=== PATIENT | female | born 1995 | race Hispanic/Latino ===

== ENCOUNTER 2024-02-02 13:53 | Emergency (ER) | payer OTHER, SELFPAY ==
[2024-02-02 14:03] VITALS: BP 118/84; PULSE 72; RESP 15; TEMP 36.4; O2SAT 100
[2024-02-02 14:34] LABS: Basophils Percent Auto 0.4 % (0.2-1.2); Eosinophils Absolute Auto 0.1 K/mm3 (0-0.3); Eosinophils Percent Auto 1.6 % (0-4.4); Hematocrit 29.2 % (37.0-47.0); Hemoglobin 8.6 g/dL (12.0-15.0); Immature Granulocyte Absolute 0.01 K/mm3 (0.00-0.031); Immature Granulocyte Percent A 0.2 % (0-0.5); Lymphocytes Absolute Auto 1.22 K/mm3 (0.9-3.2); Mean Corpuscular HGB Conc 29.5 g/dl (32-36); Mean Corpuscular Hemoglobin 18.1 pg (26-34); Mean Corpuscular Volume 61.3 fl (80-100); Mean Platelet Volume 9.7 fl (7.4-10.4); Monocytes Absolute Auto 0.5 K/mm3 (0.1-0.6); Monocytes Percent Auto 9.4 % (2.6-8.5); Neutrophils Absolute Auto 3.7 K/mm3 (1.3-6.7); Neutrophils Percent Auto 66.4 % (45.5-73.1); Platelet Count Result 362 k/mm3 (150-375); Red Blood Count 4.76 M/mm3 (4.2-5.4); Red Cell Distribution Width 19.9 % (11.5-14.5); White Blood Count 5.6 K/mm3 (4.5-10.0)
[2024-02-02 14:43] LABS: Alanine Aminotransferase 16 U/L (6-35); Albumin Level 4.3 g/dL (3.5-5.1); Alkaline Phosphatase 91 U/L (38-126); Anion Gap 8 mmol/L (4-12); Aspartate Amino Transferase 27 U/L (14-36); Bilirubin,Total 0.2 mg/dL (0.2-1.3); Blood Urea Nitrogen 12 mg/dL (7-17); Carbon Dioxide 26 mmol/L (22-30); Chloride 102 mmol/L (98-107); Estimated CRCL calculation 85 ml/min; Estimated Glomerular Filt Rate > 60; Glucose 99 mg/dL (65-110); Hypochromasia 1+; Lipase 75 U/L (23-300); Platelet Estimate Adequate (Adequate); Potassium 4.1 mmol/L (3.4-5.0); Sodium 136 mmol/L (137-145)
[2024-02-02 14:44] LABS: Microcytosis 2+ (NORMAL); Ovalocytes 1+; Schistocytes None Seen
--- NOTE | 2024-02-02 14:44 | ED.ABDPAIN ---
HPI - Abdominal Pain General Chief Complaint: Abdominal Pain Stated Complaint: LUQ abd pain Time Seen by Provider: 02/02/24 14:08 History of Present Illness HPI narrative: For the last 1-2 days patient has had cough, runny nose, diarrhea, and when she coughs she has pain to her left upper quadrant. No nausea or vomiting. No medical history. Related Data Allergies Allergy/AdvReac Type Severity Reaction Status Date / Time No Known Allergies Allergy Verified 02/02/24 14:17 Review of Systems Review of Systems: All systems reviewed & are unremarkable except as noted in HPI and below Exam Narrative: EXAMINATION OF ORGAN SYSTEMS/BODY AREAS: Constitutional: Vital signs per nursing GENERAL:[No acute distress, non-toxic appearing.] HEAD: Normal with no signs of head trauma. EYES: EOMI, conjunctiva normal ENT: Hearing grossly intact LUNGS: Nonlabored breathing. HEART: [Regular rate and rhythm] ABD: [Soft], slight tenderness to palpation left upper part EXT: Normal range of motion SKIN: [No rashes or lesions.] NEURO: [Alert and oriented x 3. No gross focal sensory or strength deficits.] PSYCH: Normal affect Course Vital Signs Vital signs: Vital Signs Temperature 97.6 F 02/02/24 14:03 Pulse Rate 72 02/02/24 14:03 Respiratory Rate 15 02/02/24 14:03 Blood Pressure 118/84 02/02/24 14:03 Pulse Oximetry 100 02/02/24 14:03 Oxygen Delivery Room Air 02/02/24 14:03 Temperature 97.6 F 02/02/24 14:03 Pulse Rate 72 02/02/24 14:03 Respiratory Rate 15 02/02/24 14:03 Blood Pressure 118/84 02/02/24 14:03 Pulse Oximetry 100 02/02/24 14:03 Oxygen Delivery Room Air 02/02/24 14:03 MDM - Abdominal Pain MDM Narrative Medical decision making narrative: 28-year-old female presents here with 1 day of viral syndrome, including cough, some left upper quadrant pain with coughing, runny nose and chills, and diarrhea. She is very well-appearing here, abdomen soft with some very minimal tenderness to the left upper quadrant. Labs within acceptable limits other than low hemoglobin. She is treated symptomatically here, and I will give her prescriptions for viral syndrome and start her on iron pills. I have asked her to follow up with primary care doctor for recheck. Patient and mom at bedside agreeable to plan. Very well-appearing at time of discharge. visitor service assistant used at all times. Lab Data 02/02/24 14:26 02/02/24 14:26 Labs: Lab Results 02/02/24 02/02/24 02/02/24 Range/Units 14:26 14:49 15:03 WBC 5.6 (4.5-10.0) K/mm3 RBC 4.76 (4.2-5.4) M/mm3 Hgb 8.6 L (12.0-15.0) g/dL Hct 29.2 L (37.0-47.0) % MCV 61.3 L (80-100) fl MCH 18.1 L (26-34) pg MCHC 29.5 L (32-36) g/dl RDW 19.9 H (11.5-14.5) % Plt Count 362 (150-375) k/mm3 MPV 9.7 (7.4-10.4) fl Immature Gran % (Auto) 0.2 (0-0.5) % Neut % (Auto) 66.4 (45.5-73.1) % Lymph % (Auto) 22.0 (18.3-44.2) % [place] % (Auto) 9.4 H (2.6-8.5) % Eos % (Auto) 1.6 (0-4.4) % Baso % (Auto) 0.4 (0.2-1.2) % Lymph # (Auto) 1.22 (0.9-3.2) K/mm3 [place] # (Auto) 0.5 (0.1-0.6) K/mm3 Eos # (Auto) 0.1 (0-0.3) K/mm3 Baso # (Auto) 0.0 (0.0-0.1) K/mm3 Abs Immat Gran (auto) 0.01 (0.00-0.031) K/mm3 Absolute Neuts (auto) 3.7 (1.3-6.7) K/mm3 Absolute Nucleated RBC 0.000 (0.0-0.012) K/mm3 Nucleated RBC % 0.0 (0.0-0.2) % Platelet Estimate Adequate (Adequate) Hypochromasia 1+ Microcytosis 2+ (NORMAL) Ovalocytes 1+ Schistocytes None seen Sodium 136 L (137-145) mmol/L Potassium 4.1 (3.4-5.0) mmol/L Chloride 102 (98-107) mmol/L Carbon Dioxide 26 (22-30) mmol/L Anion Gap 8 (4-12) mmol/L BUN 12 (7-17) mg/dL Creatinine 0.60 L (0.7-1.0) mg/dL Estim Creat Clear Calc 85 ml/min Estimated GFR > 60 (59 - ) Glucose 99 (65-110) mg/dL Calcium 9.0 (8.4-10.2)
[2024-02-02 14:51] LABS: BEDSIDEPREGUCG Negative (Negative)
[2024-02-02 15:25] LABS: Add Urine Microscopic? YES; Appearance Urine Cloudy (Clear); Bacteria Urine None Seen /hpf; Bilirubin Urine Negative (Negative); Blood Urine Negative (Negative); Color Urine Yellow (Yellow); Glucose Urine UA Negative (Negative); Ketones Urine Negative (Negative); Leukocyte Esterase Ur Negative LEU/UL (Negative); Nitrate Urine Negative (Negative); Non Pathogenic Casts 0-2; Protein Urine Negative (Negative); RBC Urine 0-2 /hpf (0-2); Specific Grav Ur 1.013 (1.001-1.035); Squamous Epithelial Cell Urine Occasional /hpf (Few); Urobilinogen Urine 0.2 mg/dL (<2.0); WBC Urine 0-5 /hpf (0-3)
[2024-02-02] MEDS: KETOROLAC 10 MG TABLET PO (15:36)
[2024-02-02] MEDS: LOPERAMIDE HCL 2 MG CAPSULE 4 MG PO (15:36)
[2024-02-02 15:53] LABS: Influenza A QL RT-PCR Negative (Negative); Influenza B QL RT-PCR Negative (Negative); RSV RNA, RT-PCR Negative (Negative); SARS-CoV-2 RNA PCR Negative (Negative)
[2024-02-02] MEDS: DICYCLOMINE HCL 10 MG CAPSULE 20 MG PO (16:25)
[2024-02-02] MEDS: ACETAMINOPHEN 500 MG TABLET 1000 MG PO (16:26)
[2024-02-02] MEDS: FAMOTIDINE 20 MG TABLET PO (16:26)
[2024-02-02] MEDS: MAG HYDROX/AL HYDROX/SIMETH 30 ML UDC PO (16:26)
== END 2024-02-02 16:34 | disposition home or self-care (01) ==
PROVIDERS: Emergency Provider Emergency Medicine
DX: B34.9 Viral infection, unspecified (principal); D64.9 Anemia, unspecified; R10.12 Left upper quadrant pain; Z20.822 Contact with and (suspected) exposure to COVID-19
CPT/HCPCS: 36415; 80053; 81001; 81025; 83690; 85025; 87637; 99283; A9270